=== PATIENT | female | born 1970 | race African-American/Black ===

== ENCOUNTER 2019-09-24 15:16 | Emergency (ER) | payer SELFPAY ==
[~2019-09-24] VITALS: Ht 170.2 cm; Wt 74.0 kg
[2019-09-24] MEDS ORDERED: HYDROCODONE/ACETAMINOPHEN 5/325MG TABLET PO ONE (18:00)
[2019-09-24 18:07] VITALS: BP 150/81
== END 2019-09-24 18:43 | disposition home or self-care (01) ==
LOC: ER 15:16
DX: M54.5 Low back pain (principal); M79.604 Pain in right leg; R03.0 Elevated blood-pressure reading, without diagnosis of hypertension
CPT/HCPCS: 99283

== ENCOUNTER → 2024-11-21 | Outpatient (CLI) | payer BC ==
[2024-11-21 16:00] LABS: BASOPHILS % 0.9 % (0.0-2.0); EOSINOPHILS % 2.4 % (0.0-5.0); HEMATOCRIT. 35.0 % (36.0-48.0); HEMOGLOBIN. 12.0 g/dL (12.0-16.0); LYMPHOCYTES % 39.5 % (20.0-50.0); MONOCYTES % 7.6 % (2.0-8.0); NEUTROPHILS % 49.6 % (40.0-76.0); RED BLOOD CELL COUNT 4.27 mill/uL (4.2-5.4); RED CELL DISTRIBUTION WIDTH 13.8 % (11.6-14.6)
[2024-11-21 16:01] LABS: CLARITY URINE CLEAR (CLEAR); COLOR URINE YELLOW (YELLOW); GLUCOSE URINE NEGATIVE (NEGATIVE); KETONES URINE NEGATIVE (NEGATIVE); LEUKOCYTE ESTERASE URINE NEGATIVE (NEGATIVE); NITRITE URINE NEGATIVE (NEGATIVE); OCCULT BLOOD URINE 1+ (NEGATIVE); PH URINE 5.5 (4.5-8.0); PROTEIN URINE NEGATIVE (NEGATIVE); SPECIFIC GRAVITY URINE 1.022 (1.005-1.030); UROBILINOGEN URINE 1.0 E.U./dL (0.2-1.0)
[2024-11-21 16:13] LABS: CREATININE 0.8 mg/dL (0.6-1.0); TRIGLYCERIDE 103 mg/dL (0-150); UREA NITROGEN BLOOD 10 mg/dL (9-23)
[2024-11-21 16:14] LABS: ASPARTATE AMINOTRANSFERASE 37 IU/L (<34); C REACTIVE PROTEIN HIGH SENS 2.19 mg/l (<1.00); LDL CHOLESTEROL 141 mg/dL (5-100)
[2024-11-21 16:15] LABS: BILIRUBIN TOTAL 0.4 mg/dL (0.1-1.0); PROTEIN TOTAL 7.8 g/dL (6.0-8.3)
[2024-11-21 16:16] LABS: VITAMIN B12 SERUM 514 pg/mL (211-911)
[2024-11-21 16:40] LABS: MEAN PLATELET VOLUME 8.9 fl (7.4-10.4); PLATELET 239 x1000/uL (130-400)
[2024-11-21 16:41] LABS: ERYTHROCYTE SEDIMENTATION RATE 16 mm/hr (0-30)
[2024-11-21 16:44] LABS: BACTERIA URINE NONE SEEN; RBC URINE NONE SEEN /hpf (0-2); SQUAMOUS EPITHELIAL CELL URINE NONE SEEN /lpf (RARE/1+); WBC URINE 0-2 /hpf (0-2); YEAST URINE NONE SEEN
[2024-11-24 17:07] LABS: CHLAMYDIA TRACHOMATIS NAA Negative (Negative); NEISSERIA GONORRHOEAE NAA Negative (Negative)
[2024-11-25 09:09] LABS: PROLACTIN 4.7 ng/mL (3.6-25.2)
[2024-11-25 13:08] LABS: ANTI-DNA DOUBLE STRANDED QUANT 1 IU/mL (0-9)
== END | disposition home or self-care (01) ==
LOC: LAB 14:57
PROVIDERS: ATTEND Internal Medicine Geriatric Medicine
DX: E66.9 Obesity, unspecified (principal); R32 Unspecified urinary incontinence; Z00.01 Encounter for general adult medical examination with abnormal findings
CPT/HCPCS: 36415; 80053; 80061; 80074; 81003; 82306; 82378; 82607; 82728; 83540; 83550; 84146; 85025; 85651; 86141; 86225; 86592; 87491; 87591

== ENCOUNTER → 2024-12-04 | Outpatient (CLI) | payer BC | END | disposition home or self-care (01) | LOC: MAMMO 07:26 | PROVIDERS: ATTEND Internal Medicine Geriatric Medicine | DX: E07.89 Other specified disorders of thyroid (principal); Z12.31 Encounter for screening mammogram for malignant neoplasm of breast | CPT/HCPCS: 76536 ==